=== PATIENT | female | born 1985 | race Hispanic/Latino ===

== ENCOUNTER 2018-09-06 15:26 | Outpatient (CLI) | payer MEDICAID ==
--- NOTE | 2018-09-06 16:33 | ULT ---
PELVIC ULTRASOUND: Transabdominal and endovaginal ultrasound of pelvis performed. INDICATION: Menorrhagia. FINDINGS: Uterus is mildly heterogeneous and prominent measuring 9.4 x 5.4 x 7.6 cm. The endometrial stripe is thickened and heterogeneous measuring up to 2 cm. There is a hypoechoic area in the posterior myometrium measuring 2 cm consistent with a fibroid. Ovaries are identified and appear unremarkable. There are small follicular cysts bilaterally. Color Doppler and spectral analysis shows blood flow to both ovaries. No free fluid. IMPRESSION: 1. Uterus is heterogeneous and there is at least 1 hypoechoic fibroid in the posterior myometrium. 2. The endometrium is thickened and heterogeneous. POS: [facility]
== END 2018-09-06 15:27 | disposition home or self-care (01) ==
LOC: BICULT 15:26
PROVIDERS: ATTEND Advanced Practice Midwife
DX: N92.1 Excessive and frequent menstruation with irregular cycle (principal); D50.0 Iron deficiency anemia secondary to blood loss (chronic); R93.89 Abnormal findings on diagnostic imaging of other specified body structures
CPT/HCPCS: 76856

== ENCOUNTER 2023-03-08 23:08 | Observation (INO) | payer OTHER, SELFPAY ==
[2023-03-08 23:45] VITALS: BMI 33.7
[2023-03-09] MEDS ORDERED: Morphine 2 MG/ML VIAL SLOW IVP PRN (00:02)
[2023-03-09] MEDS ORDERED: Acetaminophen 325 MG TAB PO PRN (00:03)
[2023-03-09] MEDS ORDERED: Ondansetron PF 4 MG/2 ML Vial IVP PRN (00:11)
[2023-03-09] MEDS ORDERED: traMADol HCl 50 MG TAB PO PRN ×2 (00:11)
[2023-03-09] MEDS ORDERED: Ipratropium/Albuterol 3 ML NEB NEB PRN (00:11)
[2023-03-09] MEDS: Sodium Chloride 0.9% 1,000 ML IV SCH ×4 (00:19→07:59)
[2023-03-09] MEDS ORDERED: TETANUS, DIPHTHERIA TOX,ADULT (TDVAX) 0.5 ML VIAL IM ONE (01:00)
[2023-03-09 06:06] VITALS: BP 110/65; TEMP 98.3
[2023-03-09] MEDS ORDERED: fentaNYL PF 100 MCG/2 ML SYRINGE ONE (06:51)
[2023-03-09 07:04] LABS: #Eosinphils 0.1 thou/uL (0.0-0.7); #Monocytes 0.8 thou/uL (0.11-0.59); #Neutrophils 8.1 thou/uL (1.40-6.50); %Basophils 0.3 % (0.0-1.0); %Eosinophils 0.6 % (0.0-10.0); %Lymphocytes 18.8 % (21.0-51.0); %Neutrophils 72.8 % (42.0-75.0); Hematocrit 41.5 % (36.0-47.0); Mean Corpuscular HGB CONC 33.7 g/dL (32.0-36.0); Mean Corpuscular Hemoglobin 30.9 pg (27.0-31.0); Mean Corpuscular Volume 91.6 fl (78.0-98.0); Mean Platelet Volume 12.6 fL (7.4-10.4); Platelet Count 164 10x3/uL (130-400); RBC Distribution Width 11.9 % (11.5-14.5); Red Blood Cell (RBC) Count 4.53 mill/uL (4.20-5.40)
[2023-03-09 07:15] LABS: INR-International Normal Ratio 1.1; PTT 30.6 sec (22.9-36.1); Prothrombin Time 14.6 sec (12.0-14.7)
[2023-03-09] MEDS ORDERED: EPINEPHrine 1 MG/ML AMP ONE (07:22)
[2023-03-09] MEDS ORDERED: Bupivacaine PF 0.5% 30 ML VIAL ONE (07:22)
[2023-03-09] MEDS ORDERED: Lidocaine 1% (PF) 30 ML VIAL ONE (07:22)
[2023-03-09 07:24] LABS: Anion Gap 12 mmol/L (10-20); BUN (Urea Nitrogen) 6 mg/dL (7.0-18.7); Calc. Creatinine Clearance 160 mL/min (70-130); Calcium 8.9 mg/dL (7.8-10.44); Carbon Dioxide 23 mmol/L (22-29); Chloride 107 mmol/L (98-107); Estimated GFR 115; Glucose 125 mg/dL (70-105); Potassium 3.3 mmol/L (3.5-5.1); Sodium 139 mmol/L (136-145)
[2023-03-09] MEDS ORDERED: Piperacillin/Tazobactam 3.375 GM in Sodium Chloride 0.9% 100 ML IVPB SCH ×2 (07:30→12:00)
[2023-03-09] MEDS ORDERED: Famotidine/PF 20 mg/2ml Vial ONE (07:44)
[2023-03-09] MEDS ORDERED: Midazolam HCl 2 mg/2 ml Vial ONE (07:45)
[2023-03-09] MEDS ORDERED: NEOSTIGMINE 3 MG/3 ML SYR 3 MG/3 ML SYRINGE ONE (08:19)
[2023-03-09] MEDS ORDERED: Rocuronium Bromide 10 MG/ML (10ML VIAL) ONE (08:19)
[2023-03-09] MEDS ORDERED: Ondansetron PF 4 MG/2 ML Vial ONE (08:19)
[2023-03-09] MEDS ORDERED: Dexamethasone 20 MG/5 ML VIAL ONE (08:19)
[2023-03-09] MEDS ORDERED: Ketorolac Tromethamine 30 MG/ML VIAL ONE (08:19)
[2023-03-09] MEDS ORDERED: Lidocaine 1% PF 5 ML VIAL ONE (08:19)
[2023-03-09] MEDS ORDERED: Succinylcholine 200 MG/10 ml SYRINGE FS ONE (08:19)
[2023-03-09] MEDS ORDERED: PROPOFOL 200 MG/20 ML VIAL ONE (08:19)
[2023-03-09] MEDS ORDERED: Glycopyrrolate 0.2 MG/ML 5 ML SYRINGE ONE (08:19)
[2023-03-09] MEDS ORDERED: Piperacillin/Tazobactam 3.375 GM VIAL ONE (08:27)
[2023-03-09] MEDS ORDERED: Famotidine/PF 20 mg/2ml Vial SLOW IVP SCH (09:00)
[2023-03-09] MEDS ORDERED: Promethazine HCl 25 MG/ML VIAL IM PRN (09:42)
[2023-03-09] MEDS ORDERED: HYDROmorphone 2 MG/ML VIAL SLOW IVP PRN (09:42)
[2023-03-09] MEDS ORDERED: Ondansetron HCl/PF 4 MG/2 ML Vial IVP PRN (09:42)
[2023-03-09] MEDS ORDERED: Meperidine HCl/PF 25 MG/ML VIAL SLOW IVP PRN (09:42)
[2023-03-09] MEDS ORDERED: fentaNYL 50 mcg/mL 1 mL Vial ONE (09:50)
[2023-03-09] MEDS: Potassium Chloride 20 MEQ in Premix Bag 1 BAG IVPB SCH ×2 (11:13→12:29)
== END 2023-03-09 15:53 | disposition home or self-care (01) ==
LOC: T4-A 23:19
PROVIDERS: ADMIT Surgery; ATTEND Surgery
PROC: 0DTJ0ZZ Resection of Appendix, Open Approach (ICD-10-PCS; principal; 2023-03-09)
DX: K35.80 Unspecified acute appendicitis (principal); Z98.51 Tubal ligation status; Z79.899 Other long term (current) drug therapy
CPT/HCPCS: 36415; 80048; 85025; 85610; 85730; 88304; 96374; 96375; A4649; G0378; J0171; J1100; J1885; J2001; J2250; J2272; J2405; J2543; J2704; J3010; J3480; J3490; J7050; S0020; S0028